=== PATIENT | male | born 1995 | race Caucasian/White ===

== ENCOUNTER 2017-01-06 10:04 | Emergency (ER) | payer SELFPAY ==
[~2017-01-06] VITALS: Ht 185.4 cm; Wt 118.2 kg
[~2017-01-06 10:04] MED LIST: ABREVA10% TP; ALPARAZOLAM0.5 MG PO; ANTIBIOTIC; CELEXA10 MG PO; CEPHALEXIN500 M1 PO; CITALOPRAM10 MG PO; CITALOPRAM20 MG PO; CITALOPRAM40 MG PO; DOXYCYCLINE 10100 MG PO; GENTAMICIN EYE D5 ML OU; IBUPROFEN200 M1 PO; KETOROLAC10 MG PO; MOBIC 7.5MG7.5 MG PO; ONDANSETRON HYDR4 M1 PO; PREDNISONE20 M1 PO; ULTRAM50 MG PO; VICODIN 300 MG-1 TAB; XANAX0.25 M1
[2017-01-06] MEDS ORDERED: CYCLOBENZ5 MG PO (11:16)
[2017-01-06 11:33] VITALS: BP 152/88
== END 2017-01-06 11:22 | disposition home or self-care (01) ==
LOC: ED 10:04
DX: G71.11 Myotonic muscular dystrophy (principal)
CPT/HCPCS: J1885

== ENCOUNTER 2017-04-07 14:25 | Emergency (ER) | payer MEDICAID ==
[~2017-04-07] VITALS: Ht 185.4 cm; Wt 111.4 kg
[~2017-04-07 14:25] MED LIST changes: +CYCLOBENZ5 MG PO
[2017-04-07] MEDS ORDERED: CYCLOBENZAPRINE10 M1 PO (15:58)
[2017-04-07] MEDS ORDERED: KETOROLAC10 MG PO (15:58)
[2017-04-07 16:11] VITALS: BP 118/73
== END 2017-04-07 16:12 | disposition home or self-care (01) ==
LOC: ED 14:25
DX: M54.5 Low back pain (principal); G71.0 Muscular dystrophy
CPT/HCPCS: J1885; J2360

== ENCOUNTER 2017-08-05 08:18 | Outpatient (RCR) | payer MEDICAID ==
[~2017-08-05 08:18] MED LIST changes: +CYCLOBENZAPRINE10 M1 PO
== END 2017-08-05 09:00 | disposition home or self-care (01) ==
LOC: PT 08:18
DX: M54.9 Dorsalgia, unspecified (principal); G89.29 Other chronic pain

== ENCOUNTER 2017-11-19 15:00 | Outpatient (RCR) | payer MEDICAID | END 2017-11-19 15:30 | disposition still patient (30) | LOC: PT 15:00 | DX: M54.42 Lumbago with sciatica, left side (principal); M54.41 Lumbago with sciatica, right side; G89.29 Other chronic pain ==

== ENCOUNTER 2018-03-30 10:27 | Emergency (ER) | payer MEDICAID ==
[~2018-03-30] VITALS: Ht 180.3 cm; Wt 143.9 kg
[2018-03-30] MEDS ORDERED: CYCLOBENZAPRINE10 M1 PO (11:07)
[2018-03-30] MEDS ORDERED: NORCO 325 MG-51 TA1 PO (11:07)
[2018-03-30 11:37] VITALS: BP 146/94
== END 2018-03-30 11:47 | disposition home or self-care (01) ==
LOC: ED 10:27
DX: M48.061 Spinal stenosis, lumbar region without neurogenic claudication (principal); G71.00 Muscular dystrophy, unspecified; F41.9 Anxiety disorder, unspecified
CPT/HCPCS: J2360

== ENCOUNTER 2018-06-28 13:12 | Emergency (ER) | payer SELFPAY ==
[~2018-06-28] VITALS: Ht 180.3 cm; Wt 136.4 kg
[~2018-06-28 13:12] MED LIST changes: +AZITHROMYCIN500 M2 PO; +NORCO 325 MG-51 TA1 PO; +XOPENEX 3 ML3 M3 IH
[2018-06-28] MEDS ORDERED: WALKER (14:13)
[2018-06-28] MEDS ORDERED: CYCLOBENZAPRINE10 M1 PO (14:13)
[2018-06-28] MEDS ORDERED: DECADRON 4MG TAB4 MG PO (14:13)
[2018-06-28] MEDS ORDERED: NORCO 325 MG-51 TA1 PO (14:13)
[2018-06-28 15:35] VITALS: BP 142/88
== END 2018-06-28 14:46 | disposition home or self-care (01) ==
LOC: ED 13:12
DX: M54.5 Low back pain (principal); M48.061 Spinal stenosis, lumbar region without neurogenic claudication; G89.29 Other chronic pain; F43.10 Post-traumatic stress disorder, unspecified; G71.00 Muscular dystrophy, unspecified; F41.9 Anxiety disorder, unspecified; M51.36 Other intervertebral disc degeneration, lumbar region; F17.210 Nicotine dependence, cigarettes, uncomplicated
CPT/HCPCS: J1885

== ENCOUNTER 2020-11-18 23:42 | Emergency (ER) | payer MEDICAID ==
[~2020-11-18 23:42] MED LIST changes: +DECADRON 4MG TAB4 MG PO; +WALKER
[2020-11-19] MEDS ORDERED: LISINOPRIL2.5 MG PO (00:35)
[2020-11-19] MEDS ORDERED: METFORMIN HYD1000 MG PO (00:35)
[2020-11-19 01:02] LABS: HEMATOCRIT 44.5 % (42.0-52.0); HEMOGLOBIN 15.5 g/dL (13.5-18.0); MEAN CELL VOLUME 86 fl (78-100); MEAN CORPUSCULAR HEMOGLOBIN 30 pg (27-31); MEAN CORPUSCULAR HGB CONC 35 g/dL (33-37); MEAN PLATELET VOLUME 8.2 fl (7.4-10.4); RED BLOOD COUNT 5.18 M/mm3 (4.20-5.60); RED CELL DISTRIBUTION WIDTH 12.9 % (11.5-14.5); WHITE BLOOD COUNT 19.1 K/mm3 (4.8-10.8)
[2020-11-19 01:10] LABS: PLATELET COUNT 559 K/mm3 (130-400)
[2020-11-19 01:11] LABS: ALBUMIN 4.1 g/dL (3.5-5.0); POTASSIUM 4.3 mmol/L (3.5-5.1)
[2020-11-19 01:12] LABS: CALCIUM 10.1 mg/dL (8.3-10.5)
[2020-11-19 01:14] LABS: TOTAL PROTEIN 8.3 g/dL (6.4-8.3)
[2020-11-19 01:15] LABS: TOTAL BILIRUBIN 0.3 mg/dL (0.2-1.2)
[2020-11-19 02:04] LABS: LYMPHOCYTE 34 % (20-51); MONOCYTE 6 % (3-10); NEUTROPHILS 59 % (42-75)
[2020-11-19 02:27] LABS: URINE APPEARANCE HAZY; URINE BILIRUBIN NEGATIVE (NEGATIVE); URINE BLOOD 50 ery/uL (NEGATIVE); URINE COLOR YELLOW; URINE KETONE NEGATIVE (NEGATIVE); URINE LEUKOCYTE ESTERASE TRACE (NEGATIVE); URINE NITRATE NEGATIVE (NEGATIVE); URINE PROTEIN(semi-quant) TRACE mg/dL (NEGATIVE); URINE UROBILINOGEN NORMAL (NORMAL)
[2020-11-19 02:28] LABS: URINE MUCUS PRESENT (NOT PRESENT)
[2020-11-19 03:17] VITALS: BP 161/77
== END 2020-11-19 03:20 | disposition home or self-care (01) ==
LOC: ED 23:42
PROVIDERS: Family Medicine
DX: D72.829 Elevated white blood cell count, unspecified (principal); R00.0 Tachycardia, unspecified; E66.01 Morbid (severe) obesity due to excess calories; E11.9 Type 2 diabetes mellitus without complications; Z79.84 Long term (current) use of oral hypoglycemic drugs; Z87.891 Personal history of nicotine dependence

== ENCOUNTER 2020-11-28 12:56 | Outpatient (RCR) | payer MEDICAID ==
[~2020-11-28 12:56] MED LIST changes: +LISINOPRIL2.5 MG PO; +METFORMIN HYD1000 MG PO
[2021-01-14] MEDS ORDERED: METFORMIN ER500 MG PO (22:46)
[2021-01-14] MEDS ORDERED: EZETIMIBE10 M1 PO (22:49)
[2021-01-14] MEDS ORDERED: BACTRIM DS TAB1 EACH PO (22:57)
[2021-02-25] MEDS ORDERED: ZESTRIL10 M1 PO (01:35)
[2021-02-25] MEDS ORDERED: TESSALON PERLE100 M1 PO (03:48)
[2021-02-25] MEDS ORDERED: ZOFRAN ODT4 MG PO (04:03)
== END 2021-02-26 | disposition still patient (30) ==
LOC: PT
DX: G71.11 Myotonic muscular dystrophy (principal); T14.8XXA Other injury of unspecified body region, initial encounter

== ENCOUNTER 2021-01-14 21:56 | Emergency (ER) | payer MEDICAID ==
[~2021-01-14] VITALS: Ht 180.3 cm; Wt 140.5 kg
[2021-01-14] MEDS ORDERED: METFORMIN ER500 MG PO (22:46)
[2021-01-14] MEDS ORDERED: EZETIMIBE10 M1 PO (22:49)
[2021-01-14] MEDS ORDERED: BACTRIM DS TAB1 EACH PO (22:57)
[2021-01-14 23:08] VITALS: BP 147/83
== END 2021-01-14 23:08 | disposition home or self-care (01) ==
LOC: ED 21:56
DX: L02.31 Cutaneous abscess of buttock (principal); D72.829 Elevated white blood cell count, unspecified; E11.9 Type 2 diabetes mellitus without complications; I10 Essential (primary) hypertension; Z79.84 Long term (current) use of oral hypoglycemic drugs

== ENCOUNTER 2021-02-25 01:23 | Emergency (ER) | payer MEDICAID ==
[~2021-02-25] VITALS: Ht 182.9 cm; Wt 140.9 kg
[~2021-02-25 01:23] MED LIST changes: +BACTRIM DS TAB1 EACH PO; +EZETIMIBE10 M1 PO; +METFORMIN ER500 MG PO
[2021-02-25] MEDS ORDERED: ZESTRIL10 M1 PO (01:35)
[2021-02-25 02:58] LABS: ALBUMIN 3.9 g/dL (3.5-5.0); POTASSIUM 3.7 mmol/L (3.5-5.1)
[2021-02-25 02:59] LABS: CALCIUM 9.4 mg/dL (8.3-10.5)
[2021-02-25 03:01] LABS: TOTAL PROTEIN 7.8 g/dL (6.4-8.3)
[2021-02-25 03:02] LABS: TOTAL BILIRUBIN 0.4 mg/dL (0.2-1.2)
[2021-02-25 03:06] LABS: BASO # 0.04 K/mm3 (0.02-0.10); EOS # 0.34 K/mm3 (0.04-0.40); EOS % 3.2 % (0.0-4.0); HEMOGLOBIN 15.4 g/dL (13.5-18.0); LYMPH# 2.06 K/mm3 (1.50-4.00); MEAN CELL VOLUME 84 fl (78-100); MEAN CORPUSCULAR HEMOGLOBIN 29 pg (27-31); MEAN CORPUSCULAR HGB CONC 35 g/dL (33-37); MEAN PLATELET VOLUME 8.1 fl (7.4-10.4); MONO # 1.19 K/mm3 (0.20-0.80); NEU # 6.97 K/mm3 (1.40-6.50); PLATELET COUNT 414 K/mm3 (130-400); RED BLOOD COUNT 5.27 M/mm3 (4.20-5.60); RED CELL DISTRIBUTION WIDTH 13.1 % (11.5-14.5); WHITE BLOOD COUNT 10.6 K/mm3 (4.8-10.8)
[2021-02-25] MEDS ORDERED: TESSALON PERLE100 M1 PO (03:48)
[2021-02-25 03:59] LABS: URINE APPEARANCE HAZY; URINE BILIRUBIN NEGATIVE (NEGATIVE); URINE BLOOD 50 ery/uL (NEGATIVE); URINE COLOR AMBER; URINE GLUCOSE NEGATIVE (NEGATIVE); URINE KETONE NEGATIVE (NEGATIVE); URINE LEUKOCYTE ESTERASE NEGATIVE (NEGATIVE); URINE NITRATE NEGATIVE (NEGATIVE); URINE PROTEIN(semi-quant) 1+ mg/dL (NEGATIVE); URINE UROBILINOGEN NORMAL (NORMAL)
[2021-02-25 04:00] LABS: URINE MUCUS PRESENT (NOT PRESENT); URINE WBC 0-1 /hpf (0-3)
[2021-02-25] MEDS ORDERED: ZOFRAN ODT4 MG PO (04:03)
[2021-02-25 04:08] VITALS: BP 146/91
== END 2021-02-25 04:08 | disposition home or self-care (01) ==
LOC: ED 01:23
PROVIDERS: Family Medicine
DX: B34.9 Viral infection, unspecified (principal); E11.9 Type 2 diabetes mellitus without complications; C95.90 Leukemia, unspecified not having achieved remission; R00.0 Tachycardia, unspecified; F17.210 Nicotine dependence, cigarettes, uncomplicated; Z20.822 Contact with and (suspected) exposure to COVID-19; Z79.84 Long term (current) use of oral hypoglycemic drugs

== ENCOUNTER → 2021-05-10 | Outpatient (CLI) | payer MEDICAID ==
[~2021-05-10] MED LIST changes: +TESSALON PERLE100 M1 PO; +ZESTRIL10 M1 PO; +ZOFRAN ODT4 MG PO
== END ==
LOC: RAD 10:30
DX: R05.1 Acute cough (principal); R07.9 Chest pain, unspecified

== ENCOUNTER 2021-10-05 00:10 | Emergency (ER) | payer MEDICAID ==
[~2021-10-05] VITALS: Ht 180.3 cm; Wt 141.3 kg
[2021-10-05 00:15] VITALS: BP 140/76
[2021-10-05] MEDS ORDERED: SERTRALINE50 MG PO (00:58)
[2021-10-05] MEDS ORDERED: ABILIFY5 MG PO (01:00)
[2021-10-05 01:23] LABS: BASO # 0.06 K/mm3 (0.02-0.10); EOS # 0.13 K/mm3 (0.04-0.40); EOS % 1.1 % (0.0-4.0); HEMATOCRIT 43.4 % (42.0-52.0); HEMOGLOBIN 15.1 g/dL (13.5-18.0); LYMPH# 4.96 K/mm3 (1.50-4.00); MEAN CELL VOLUME 88 fl (78-100); MEAN CORPUSCULAR HEMOGLOBIN 30 pg (27-31); MEAN CORPUSCULAR HGB CONC 35 g/dL (33-37); MEAN PLATELET VOLUME 8.4 fl (7.4-10.4); MONO # 0.82 K/mm3 (0.20-0.80); NEU # 6.27 K/mm3 (1.40-6.50); PLATELET COUNT 394 K/mm3 (130-400); RED BLOOD COUNT 4.96 M/mm3 (4.20-5.60); RED CELL DISTRIBUTION WIDTH 12.9 % (11.5-14.5); WHITE BLOOD COUNT 12.3 K/mm3 (4.8-10.8)
[2021-10-05 01:33] LABS: ALBUMIN 3.9 g/dL (3.5-5.0); POTASSIUM 4.5 mmol/L (3.5-5.1); SODIUM 139 mmol/L (136-145)
[2021-10-05 01:34] LABS: CALCIUM 9.7 mg/dL (8.3-10.5)
[2021-10-05 01:35] LABS: GLUCOSE 305 mg/dL (75-110)
[2021-10-05 01:36] LABS: TOTAL PROTEIN 7.7 g/dL (6.4-8.3)
[2021-10-05 01:37] LABS: CARBON DIOXIDE 26 mmol/L (22-29); TOTAL BILIRUBIN 0.3 mg/dL (0.2-1.2)
[2021-10-05 01:37] LABS: URINE APPEARANCE CLEAR; URINE BILIRUBIN NEGATIVE (NEGATIVE); URINE BLOOD NEGATIVE (NEGATIVE); URINE COLOR YELLOW; URINE KETONE NEGATIVE (NEGATIVE); URINE LEUKOCYTE ESTERASE NEGATIVE (NEGATIVE); URINE NITRATE NEGATIVE (NEGATIVE); URINE PROTEIN(semi-quant) TRACE (NEGATIVE); URINE UROBILINOGEN NORMAL (NORMAL); URINE WBC 0-1 /hpf (0-3)
[2021-10-05 01:41] LABS: AST-SGOT 17 U/L (5-34)
[2021-10-05 01:42] LABS: ALT/SGPT 39 U/L (0-55)
[2021-10-05 01:46] LABS: ACETAMINOPHEN < 1 ug/mL; ALCOHOL IN-HOUSE < 10 mg/dL (<10)
== END 2021-10-05 07:45 ==
LOC: ED 00:10
PROVIDERS: Physician Assistant
DX: R45.851 Suicidal ideations (principal); C95.90 Leukemia, unspecified not having achieved remission; F17.200 Nicotine dependence, unspecified, uncomplicated; Z28.310 Unvaccinated for COVID-19; Z91.040 Latex allergy status

== ENCOUNTER 2022-01-19 08:27 | Emergency (ER) | payer MEDICAID ==
[~2022-01-19] VITALS: Ht 180.3 cm; Wt 147.6 kg
[~2022-01-19 08:27] MED LIST changes: +ABILIFY5 MG PO; +SERTRALINE50 MG PO
[2022-01-19] MEDS ORDERED: TRULICITY0.75 MG/0. SC (09:34)
[2022-01-19 10:39] LABS: STREP SCREEN NEGATIVE (NEGATIVE)
[2022-01-19] MEDS ORDERED: AMOXIL500 M1 PO (10:54)
[2022-01-19 11:34] VITALS: BP 126/81
== END 2022-01-19 11:25 | disposition home or self-care (01) ==
LOC: ED 08:27
PROVIDERS: Nurse Practitioner Family
DX: J02.9 Acute pharyngitis, unspecified (principal); Z91.040 Latex allergy status; Z20.822 Contact with and (suspected) exposure to COVID-19; Z28.310 Unvaccinated for COVID-19

== ENCOUNTER → 2023-04-17 | Outpatient (CLI) | payer MEDICAID ==
[~2023-04-17] MED LIST changes: +AMOXIL500 M1 PO; +SERTRALINE HYD100 MG PO; +TRULICITY0.75 MG/0. SC
== END ==
LOC: RAD 11:42
DX: M79.641 Pain in right hand (principal)

== ENCOUNTER → 2024-03-18 | Outpatient (CLI) | payer MEDICAID | LOC: RAD 09:35 | DX: S83.002A Unspecified subluxation of left patella, initial encounter (principal); S83.001A Unspecified subluxation of right patella, initial encounter ==

== ENCOUNTER 2024-05-11 17:31 | Emergency (ER) | payer MEDICAID ==
[~2024-05-11] VITALS: Ht 180.3 cm; Wt 104.5 kg
[2024-05-11] MEDS ORDERED: METHOCARBAMOL500 M1 (17:55)
[2024-05-11 18:23] LABS: BASO # 0.04 K/mm3 (0.02-0.10); EOS # 0.09 K/mm3 (0.04-0.40); EOS % 1.2 % (0.0-4.0); HEMATOCRIT 42.9 % (42.0-52.0); LYMPH# 3.02 K/mm3 (1.50-4.00); MEAN CELL VOLUME 87 fl (78-100); MEAN CORPUSCULAR HEMOGLOBIN 30 pg (27-31); MEAN CORPUSCULAR HGB CONC 35 g/dL (33-37); MEAN PLATELET VOLUME 8.1 fl (7.4-10.4); NEU # 3.53 K/mm3 (1.40-6.50); PLATELET COUNT 405 K/mm3 (130-400); RED BLOOD COUNT 4.95 M/mm3 (4.20-5.60); RED CELL DISTRIBUTION WIDTH 13.3 % (11.5-14.5); WHITE BLOOD COUNT 7.4 K/mm3 (4.8-10.8)
[2024-05-11 18:30] LABS: ALBUMIN 4.3 g/dL (3.5-5.0)
[2024-05-11 18:32] LABS: CALCIUM 9.6 mg/dL (8.3-10.5)
[2024-05-11 18:33] LABS: TOTAL PROTEIN 7.7 g/dL (6.4-8.3)
[2024-05-11 18:35] LABS: TOTAL BILIRUBIN 0.4 mg/dL (0.2-1.2)
[2024-05-11 19:25] VITALS: BP 146/84
== END 2024-05-11 19:25 | disposition home or self-care (01) ==
LOC: ED 17:31
PROVIDERS: Nurse Practitioner Family
DX: R42 Dizziness and giddiness (principal); Z91.040 Latex allergy status; W18.30XA Fall on same level, unspecified, initial encounter; W22.8XXA Striking against or struck by other objects, initial encounter